=== PATIENT | male | born 1985 | race Two or more races ===

== ENCOUNTER 2020-12-08 11:24 | Emergency (ER) | payer OTHER ==
[~2020-12-08] VITALS: Ht 167.6 cm; Wt 60.0 kg
[2020-12-08 13:40] VITALS: BP 121/79
== END 2020-12-08 13:40 | disposition home or self-care (01) ==
LOC: FSED 11:50
DX: M54.5 Low back pain (principal); N20.0 Calculus of kidney
CPT/HCPCS: 74176; 80053; 81003; 85025; 99283